=== PATIENT | female | born 1945 | race Caucasian/White ===

== ENCOUNTER 2024-04-22 13:47 | Outpatient (REF) | payer BC, MEDICARE, SELFPAY ==
--- NOTE | ~2024-04-22 | XR_ITS ---
EXAMINATION: XR CHEST CLINICAL INFORMATION: Cough. COMPARISON: Most recent chest radiograph dated 03/07/2011. TECHNIQUE: 2 views of the chest were obtained. FINDINGS: No airspace consolidation. No pleural effusion or pneumothorax. Borderline cardiomegaly. XR/XR chest 2V IMPRESSION: 1. No airspace consolidation. 2. Borderline cardiomegaly. Electronically signed by: Kit Gutierrez MD 04/22/2024 02:42 PM [facility]
== END 2024-04-22 13:48 | disposition home or self-care (01) ==
LOC: HO.XRAY 13:47
PROVIDERS: PCP Internal Medicine; Visit Provider Physician Assistant
DX: R05.9 Cough, unspecified (principal)
CPT/HCPCS: 71046